=== PATIENT | male | born 1995 | race Caucasian/White ===

== ENCOUNTER 2023-06-17 15:02 | Observation (INO) | payer OTHER ==
--- NOTE | 2023-06-17 15:47 | ED ---
Chest Pain HPI - General Source: patient, RN notes reviewed Mode of arrival: wheelchair Limitations: no limitations <Gray Hernandez - Last Filed: 06/17/23 15:46> <Eleanor Lowery - Last Filed: 06/18/23 00:12> - General Chief Complaint: Chest Pain Stated Complaint: Chest Pain-Nausea,Dizziness Time Seen by Provider: 06/17/23 15:46 - History of Present Illness Initial Comments: 20-year-old male presents emergency Department chief complaint chest pain. Patient states it's centralized chest pain, sharp and pressure-like. Patient states she does have some nausea and dizziness. Patient states he does not have any prior cardiac disease he has a history of reflux. (Gray Hernandez) 28-year-old male with no reported past medical history presents emergency department reporting chest pain. States that it started 1.5 hours prior to hospital arrival. He was sitting down when it happened. States that the pain is located over the left chest wall with radiation into the left arm. Does cause left arm numbness. States that the pain has improved since it started. He took some anti-gas medication at home. He does have a history of reflux but states that this pain does not feel similar. He admits to associated nausea without vomiting. No ripping or tearing sensation to his back. Admits family history of cardiac disease. Patient does not see a primary care doctor and therefore denies any medical complaints. He does admit to diaphoresis. No other alleviating, precipitating or modifying factors (Eleanor Lowery) - Related Data Home Medications Medication Instructions Recorded Confirmed Famotidine [Pepcid] 20 mg PO BID PRN 06/17/23 06/17/23 Allergies Allergy/AdvReac Type Severity Reaction Status Date / Time Iodinated Contrast Media Allergy Unknown Verified 06/17/23 18:35 Review of Systems ROS Other: All systems not noted in ROS Statement are negative. <Gray Hernandez - Last Filed: 06/17/23 15:46> ROS Other: All systems not noted in ROS Statement are negative. <Eleanor Lowery - Last Filed: 06/18/23 00:12> ROS Statement: Those systems with pertinent positive or pertinent negative responses have been documented in the HPI. Past Medical History Past Medical History: No Reported History Additional Past Medical History / Comment(s): kidney stone History of Any Multi-Drug Resistant Organisms: None Reported Past Surgical History: Orthopedic Surgery Additional Past Surgical History / Comment(s): knee elbow Past Psychological History: No Psychological Hx Reported Smoking Status: Current every day smoker Past Alcohol Use History: Occasional Past Drug Use History: None Reported <Gray Hernandez - Last Filed: 06/17/23 15:46> General Exam Limitations: no limitations <Gray Hernandez - Last Filed: 06/17/23 15:46> General appearance: alert, in no apparent distress Head exam: Present: atraumatic, normocephalic, normal inspection Eye exam: Present: normal appearance, PERRL, EOMI. Absent: scleral icterus, conjunctival injection, periorbital swelling ENT exam: Present: normal exam, mucous membranes moist Neck exam: Present: normal inspection. Absent: tenderness, meningismus, lymphadenopathy Respiratory exam: Present: normal lung sounds bilaterally. Absent: respiratory distress, wheezes, rales, rhonchi, stridor Cardiovascular Exam: Present: normal rhythm, tachycardia, normal heart sounds. Absent: systolic murmur, diastolic murmur, rubs, gallop, clicks GI/Abdominal exam: Present: soft, normal bowel sounds. Absent: distended, tenderness, guarding, rebound, rigid Extremities exam: Present: normal inspection, full ROM, normal capillary refill. Absent: tenderness, pedal edema, joint swelling, calf tenderness Back exam: Present: normal inspection Neurological exam: Present: alert, oriented X3, CN II-XII intact Psychiatric exam: Present: normal affect, normal mood Skin exam: Present: warm, dry, intact, normal color. Absent: rash <Eleanor Lowery - Last Filed: 06/18/23 00:12> - General Exam Comments Initial Comments: Visual Physical Exam Vital signs reviewed General: Well-appearing, nontoxic, no acute distress. Head: Normocephalic, atraumatic Eyes: PERRLA, EOMI ENT: Airway patent Chest: Nonlabored breathing Skin: No visual rash, normal skin tone Neuro: Alert and oriented 3 Musculoskeletal: No gross abnormalities (Gray Hernandez) Course Vital Signs 06/17/23 06/17/23 06/17/23 15:21 16:17 16:30 Temperature 98.7 F Pulse Rate 105 H 99 Pulse Rate [ 103 H It Field Technician ] Respiratory 18 18 Rate Blood Pressure 139/88 115/74 O2 Sat by Pulse 98 98 Oximetry 06/17/23 06/17/23 06/17/23 17:05 18:32 21:08 Temperature 99.2 F 98.8 F Pulse Rate 91 93 92 Pulse Rate [ It Field Technician ] Respiratory 18 17 18 Rate Blood Pressure 122/66 123/90 131/68 O2 Sat by Pulse 97 98 98 Oximetry Chest Pain MDM <Gray Hernandez - Last Filed: 06/17/23 15:46> <Eleanor Lowery - Last Filed: 06/18/23 00:12> - MDM I completed the quick note portion of this chart signed Gray Hernandez PA-C (Gray Hernandez) Was pt. sent in by a medical professional or institution ([facility], [employer], urgent care, hospital, or [facility]...) When possible be specific @ -No Did you speak to anyone other than the patient for history (EMS, parent, family, police, friend...)? What history was obtained from this source @ -No Did you review nursing and triage notes (agree or disagree)? Why? @ -I reviewed and agree with nursing and triage notes Were old charts reviewed (outside hosp., previous admission, EMS record, old EKG, old radiological studies, urgent care reports/EKG's, [facility] records)? Report findings @ -No old charts were reviewed Differential Diagnosis (chest pain, altered mental status, abdominal pain women, abdominal pain men, vaginal bleeding, weakness, fever, dyspnea, syncope, headache, dizziness, GI bleed, back pain, seizure, CVA, palpatations, mental health, musculoskeletal)? @ -Differential Chest Pain: Stable Angina, Unstable Angina, STEMI, NSTEMI Aortic Dissection, Pneumothorax, Musculoskeletal, Esophageal Spasm GERD, Cholecystitis, Pancreatitis, Zoster, this is not meant to be an all-inclusive list. EKG interpreted by me (3pts min.). @ -Yes and demonstrates sinus tachycardia with a rate of 112. IN interval 126. QRS 106. QTC of 397. Q waves in leads 3 and aVF. No acute ST segment elevations X-rays interpreted by me (1pt min.). @ -Yes and demonstrates no acute process CT interpreted by me (1pt min.). @ -None done U/S interpreted by me (1pt. min.). @ -None done What testing was considered but not performed or refused? (CT, X-rays, U/S, labs)? Why? @ -None What meds were considered but not given or refused? Why? @ -Pain medications were offered however patient refused Did you discuss the management of the patient with other professionals (professionals i.e. DrLeslee, PA, [employer], lab, RT, psych nurse, social service technician, medical data entry clerk, teacher, activities officer, case mgr)? Give summary @ -Spoke with Dr. Owen for admission Was smoking cessation discussed for >3mins.? @ -No Was critical care preformed (if so, how long)? @ -No Were there social determinants of health that impacted care today? How? (Homelessness, low income, unemployed, alcoholism, drug addiction, transportation, low edu. Level, literacy, decrease access to med. care, alf, rehab)? @ -No Was there de-escalation of care discussed even if they declined (Discuss DNR or withdrawal of care, Hospice)? DNR status @ -No What co-morbidities impacted this encounter? (DM, HTN, Smoking, COPD, CAD, Cancer, CVA, ARF, Chemo, Hep., AIDS, mental health diagnosis, sleep apnea, morbid obesity)? @ -Obesity Was patient admitted / discharged? Hospital course, mention meds given and route, prescriptions, significant lab abnormalities, going to OR and other pertinent info. @ -Admitted. Upon arrival patient was placed into room 17. Thorough history and physical exam was performed. Patient is visibly uncomfortable. He is hooked to continuous pulse ox and cardiac monitoring. 12-lead EKG is obtained. He is offered pain medications however refuses. He is agreeable to nausea medications and therefore is given 4 g of Zofran. Laboratory studies are conducted. Chest x-ray was performed. D-dimer is negative. Troponin is negative. Symptoms just started 1 hour prior to hospital arrival. I do feel that the patient would benefit from turning his troponins as well as a cardiology evaluation. Patient was agreeable to this. Spoke with Dr. Owen. Patient is given an aspirin. Patient admitted in stable condition Undiagnosed new problem with uncertain prognosis? @ -yes Drug Therapy requiring intensive monitoring for toxicity (Heparin, Nitro, Insulin, Cardizem)? @ -No Were any procedures done? @ -No Diagnosis/symptom? @ -Acute chest pain, acute tachycardia Acute, or Chronic, or Acute on Chronic? @ -Acute Uncomplicated (without systemic symptoms) or Complicated (systemic symptoms)? @ -Ucomplicated Side effects of treatment? @ -No Exacerbation, Progression, or Severe Exacerbation? @ -No Poses a threat to life or bodily function? How? (Chest pain, [place], [place], pneumonia, PE, COPD, DKA, ARF, appy, cholecystitis, CVA, Diverticulitis, Homicidal, Suicidal, threat to staff... and all critical care pts) @ -Yes patient does present with chest pain (Eleanor Lowery) Disposition <Gray Hernandez - Last Filed: 06/17/23 15:46> Is patient prescribed a controlled substance at d/c from ED?: No Time of Disposition: 17:55 Decision to Admit Reason: Admit from EC Decision Date: 06/17/23 Decision Time: 17:55 <Eleanor Lowery - Last Filed: 06/18/23 00:12> Clinical Impression: Chest pain Disposition: LEFT AGAINST MEDICAL ADVICE Condition: Stable
[2023-06-17] MEDS ORDERED: ONDANSETRON 4 MG/2 ML VIAL IVP STA (16:06)
[2023-06-17] MEDS ORDERED: SODIUM CHLORIDE 0.9% 1,000 ML IV ONE (16:08)
[2023-06-17 16:42] LABS: Basophils # (A) 0.1 k/uL (0-0.2); Basophils % (A) 1 %; Eosinophils # (A) 0.1 k/uL (0-0.7); Eosinophils % (A) 1 %; HCT 44.4 % (39.0-53.0); HGB 15.1 gm/dL (13.0-17.5); Lymphocytes # (A) 1.7 k/uL (1.0-4.8); Lymphocytes % (A) 19 %; MCH 30.5 pg (25.0-35.0); MCV 89.5 fL (80.0-100.0); Mean Platelet Volume 8.8; Monocytes # (A) 0.4 k/uL (0-1.0); Monocytes % (A) 5 %; Neutrophils # (A) 6.7 k/uL (1.3-7.7); Neutrophils % (A) 74 %; Platelet Count 237 k/uL (150-450); RBC 4.96 m/uL (4.30-5.90); RDW 12.7 % (11.5-15.5); WBC 9.1 k/uL (3.8-10.6)
[2023-06-17 16:53] LABS: ALT 74 U/L (4-49); AST 42 U/L (17-59); African American GFR (CKD) >90 (>60 ml/min/1.73 sqM); Albumin 4.5 g/dL (3.5-5.0); Alkaline Phosphatase 72 U/L (38-126); Anion Gap 11 mmol/L; Blood Urea Nitrogen 11 mg/dL (9-20); Carbon Dioxide 24 mmol/L (22-30); Chloride 105 mmol/L (98-107); Glucose 108 mg/dL (74-99); Magnesium 2.2 mg/dL (1.6-2.3); Non-African American GFR(CKD) >90 (>60 ml/min/1.73 sqM); Potassium 4.3 mmol/L (3.5-5.1); Sodium 140 mmol/L (137-145); Total Bilirubin 1.2 mg/dL (0.2-1.3); Total Protein 7.7 g/dL (6.3-8.2)
[2023-06-17 17:00] LABS: INR 0.9 (<1.2); Partial Thromboplastin Time 23.8 sec (22.0-30.0); Prothrombin Time 10.3 sec (10.0-12.5)
--- NOTE | 2023-06-17 17:04 | XR ---
EXAMINATION: XR chest 2V: 06/17/2023 4:41 PM CLINICAL INDICATION: Chest Pain TECHNIQUE: Departmental protocol COMPARISON: None FINDINGS: The lungs are clear. The pleural spaces are negative. EKG leads. The cardiac silhouette is not enlarged. The remainder of the mediastinal silhouette is unr emarkable. The skeletal structures and soft tissues are negative for acute findings. IMPRESSION: No acute radiographic process.
[2023-06-17] MEDS ORDERED: ASPIRIN 81 MG PO STA (17:53)
[2023-06-17] MEDS ORDERED: NITROGLYCERIN SL TABS 0.4 MG TAB SUBLINGUAL STA (17:53)
[2023-06-17] MEDS ORDERED: NALOXONE 0.4 MG/ML 1 ML VIAL IV PRN (18:00)
[2023-06-17 21:18] VITALS: BP 131/68; PULSE 92; RESP 18; TEMP 98.8
--- NOTE | 2023-06-17 23:30 | P.HPIM ---
History of Present Illness H&P Date: 06/17/23 Patient is a 28-year-old male with a PMH of GERD who presented to the emergency room with complaints of chest discomfort. Patient reports this pain started around 1 PM earlier today, was substernal, 8 out of 10 on maximal intensity, pressure-like, with associated shortness of breath, nausea, diaphoresis, dizziness. He denied any prior history of such pain. Also denied any history of coronary artery disease. Does report daily vape use. Reports that the pain now radiated up into the right upper chest and is currently a 4 out of 10 on maximal intensity. Denied experiencing fever, chills, cough, abdominal pain, diarrhea. In the emergency room chest x-ray was unremarkable with EKG showing sinus tachycardia 112 bpm with inferior lead Q waves with T-wave flattening in leads V3 to V6. Laboratory evaluation was remarkable for troponin less than 0.012, d- dimer less than 0.17, and glucose 108. ED documentation reviewed and case discussed with ED provider. Review of systems: Pertinent positives and negatives as discussed in HPI, a complete review of systems was performed and all other systems are negative. Physical examination: Vital signs reviewed General: non toxic, no distress, appears older than stated age, morbidly obese Derm: no unusual rashes/lesions, warm Head: atraumatic, normocephalic, symmetric Eyes: EOMI, no lid lag, anicteric sclera, pupils equal round reactive to light ENT: Nose and ears atraumatic Neck: No cervical lymphadenopathy, trachea midline, supple Mouth: no lip lesion, mucus membranes moist Cardiovascular: S1S2 reg, no murmur, positive dorsalis pedis pulse bilateral, no edema, mild right-sided chest wall tenderness with some pain reproducible Lungs: CTA bilateral, no rhonchi, no rales, no accessory muscle use Abdominal: soft, nontender to palpation, no guarding Ext: muscle strength 5 out of 5 in all 4 extremities grossly, no gross muscle atrophy, no contractures, Neuro: CN II-XI grossly intact, no gross focal neuro deficits Psych: Alert, oriented, appropriate affect Assessment: Chest pain with typical features, rule out ACS Chronic conditions: GERD Hyperglycemia Imaging: In the emergency room chest x-ray was unremarkable with EKG showing sinus tachycardia 112 bpm with inferior lead Q waves with T-wave flattening in leads V3 to V6. Data Review: Laboratory evaluation was remarkable for troponin less than 0.012, d-dimer less than 0.17, and glucose 108. Plan: Cardiology consult Trend troponin Cardiac monitoring Continue with aspirin, statin Advised patient on importance of tobacco cessation Continue with home antacid DVT prophylaxis: Lovenox subcu The patient is admitted with an anticipated less than 2 midnight stay for evaluation of chest pain CODE STATUS: Full Code Discussed with: Patient Anticipated discharge place: Home Past Medical History Past Medical History: No Reported History Additional Past Medical History / Comment(s): kidney stone History of Any Multi-Drug Resistant Organisms: None Reported Past Surgical History: Orthopedic Surgery Additional Past Surgical History / Comment(s): knee elbow Past Psychological History: No Psychological Hx Reported Smoking Status: Current every day smoker Past Alcohol Use History: Occasional Past Drug Use History: None Reported Medications and Allergies Home Medications Medication Instructions Recorded Confirmed Type Famotidine [Pepcid] 20 mg PO BID PRN 06/17/23 06/17/23 History Allergies Allergy/AdvReac Type Severity Reaction Status Date / Time Iodinated Contrast Media Allergy Unknown Verified 06/17/23 18:35 Physical Exam Vitals: Vital Signs Temp Pulse Pulse Resp BP Pulse Ox 06/17/23 21:08 98.8 F 92 18 131/68 98 06/17/23 18:32 99.2 F 93 17 123/90 98 06/17/23 17:05 91 18 122/66 97 06/17/23 16:30 99 18 115/74 98 06/17/23 16:17 103 H 06/17/23 15:21 98.7 F 105 H 18 139/88 98 Intake and Output 06/17/23 06/17/23 06/18/23 14:59 22:59 06:59 Other: Weight 142.882 kg Results CBC & Chem 7: 06/17/23 16:20 06/17/23 16:20 Labs: Abnormal Lab Results - Last 24 Hours (Table) 06/17/23 Range/Units 16:20 Glucose 108 H (74-99) mg/dL ALT 74 H (4-49) U/L
--- NOTE | 2023-06-18 04:14 | P.DS ---
Providers Date of admission: 06/17/23 18:00 Expected date of discharge: 06/17/23 Attending physician: Leonel Owen MD Consults: 06/17/23 18:00 Consult Physician Urgent Consulting Provider: [facility] Consult Reason/Comments: acute chest pain, abn ekg Do you want consulting provider notified?: Yes Primary care physician: Stated None Hospital Course: Please refer to the H&P which will serve as a discharge summary. The patient left AGAINST MEDICAL ADVICE from the emergency room. Plan - Discharge Summary New Discharge Prescriptions: No Action Famotidine [Pepcid] 20 mg PO BID PRN PRN Reason: acid reflux Discharge Medication List Famotidine [Pepcid] 20 mg PO BID PRN 06/17/23 [History] Follow up Appointment(s)/Referral(s): None,Stated [Primary Care Provider] - 1-2 days Discharge Disposition: LEFT AGAINST MEDICAL ADVICE
== END 2023-06-17 21:09 | disposition left against medical advice (07) ==
LOC: EC 15:02 → 6NMEDSUR 18:00
PROVIDERS: ADMIT Student in an Organized Health Care Education/Training Program; ATTEND Student in an Organized Health Care Education/Training Program
DX: R07.9 Chest pain, unspecified (principal); R00.0 Tachycardia, unspecified; R73.9 Hyperglycemia, unspecified; K21.9 Gastro-esophageal reflux disease without esophagitis; R11.0 Nausea; R42 Dizziness and giddiness; R61 Generalized hyperhidrosis; R06.02 Shortness of breath; M79.602 Pain in left arm; R20.0 Anesthesia of skin; Z53.29 Procedure and treatment not carried out because of patient's decision for other reasons; F17.290 Nicotine dependence, other tobacco product, uncomplicated; E66.9 Obesity, unspecified; Z68.37 Body mass index [BMI] 37.0-37.9, adult; Z91.041 Radiographic dye allergy status; Z87.442 Personal history of urinary calculi; Z98.890 Other specified postprocedural states; Z82.49 Family history of ischemic heart disease and other diseases of the circulatory system
CPT/HCPCS: 96361; 96374; 99285; 36415; 93005; 85379; 80053; 83735; 84484; 85025; 85610; 85730; 71046; G0378; J2405